=== PATIENT | female | born 1985 | race Caucasian/White ===

== ENCOUNTER 2017-10-04 08:10 | Outpatient (CLI) | payer BC ==
--- NOTE | 2017-10-04 13:35 | NM ---
NUCLEAR MEDICINE GASTRIC EMPTYING EXAM: 10/04/2017 HISTORY: Gastroesophageal reflux disease without esophagitis. Irritable bowel syndrome with diarrhea and weig ht loss. Assess gastric emptying. COMPARISON: None. TECHNIQUE: The patient ingested 2.1 millicuries of technetium 99m labeled sulfur colloid orally, in a scrambled egg. Anterior planar imaging was performed over four hours to calculate the gastric emptying time. FINDINGS: There is radiotracer activity within the stomach on post ingestion imaging. There is 90% emptying at 30 minutes, 19% emptying at 60 minutes, 40% emptying at two hours, 53% emptying at three hours, and 70% emptying at four hours. The T1 one-half is 193 minutes, greater than the normal of 90 minutes. IMPRESSION: Delayed gastric emptying is noted. T1/2 is 163min, while normal T one-half for gastric emptying is 9 0 minutes or less. POS: BEATRICE
== END 2017-10-04 08:11 | disposition home or self-care (01) ==
LOC: NM 08:10
PROVIDERS: ATTEND Internal Medicine Gastroenterology
DX: K21.9 Gastro-esophageal reflux disease without esophagitis (principal); K58.0 Irritable bowel syndrome with diarrhea; R63.4 Abnormal weight loss; D50.0 Iron deficiency anemia secondary to blood loss (chronic); K90.0 Celiac disease
CPT/HCPCS: 78264; A9541

== ENCOUNTER 2017-10-10 08:09 | Outpatient (CLI) | payer BC | END 2017-10-10 08:10 | disposition home or self-care (01) | LOC: BICULT 08:09 | PROVIDERS: ATTEND Urology | DX: N39.41 Urge incontinence (principal); N28.1 Cyst of kidney, acquired | CPT/HCPCS: 76770 ==

== ENCOUNTER 2018-01-09 07:04 | Outpatient (CLI) | payer BC ==
--- NOTE | 2018-01-09 11:05 | CT ---
ABDOMEN AND PELVIC CT SCAN WITH IV CONTRAST: HISTORY: A 32-year-old female with a history of weight loss, nausea, and bowel changes, inability to eat. FINDINGS: The lung bases are clear. Visualized liver, gallbladder, pancreas, and borderline size spleen are no wei. Adrenal glands are unremarkable. No renal calculus or acute GE obstruction. No CT evidence fo r acute appendicitis. In the left adnexal region there is a somewhat complex multiseptated cystic ma ss measuring 5.6 x 8 cm with at least some of the septations showing some thickening as well as enhan cement certainly raising concern for ovarian cystic neoplasm. Further evaluation with gynecological consultation in this regard is suggested. A 2 cm diameter small right ovarian follicle cyst. No abs cess or abnormal fluid collection. No adenopathy. IMPRESSION: Borderline size spleen. Somewhat complex multiseptated cystic mass in the left adnexa region includi ng some thickened enhancing septae raising concern for left ovarian cystic neoplasm. Gynecological e valuation in this regard is suggested. CODE T POS: BEATRICE
[2018-01-09] MEDS ORDERED: Iopamidol 370 76% 100 ML VIAL ONE (11:33)
== END 2018-01-09 07:05 | disposition home or self-care (01) ==
LOC: CT 07:04
PROVIDERS: ATTEND Internal Medicine Gastroenterology
DX: R63.4 Abnormal weight loss (principal); R10.84 Generalized abdominal pain; K31.84 Gastroparesis; R14.0 Abdominal distension (gaseous); D50.0 Iron deficiency anemia secondary to blood loss (chronic)
CPT/HCPCS: 36415; 74177; 84703

== ENCOUNTER 2018-10-09 10:50 | Outpatient (CLI) | payer OTHER | END 2018-10-09 10:51 | disposition home or self-care (01) | LOC: CTENTCT 10:50 | PROVIDERS: ATTEND Otolaryngology Plastic Surgery within the Head & Neck | DX: J32.9 Chronic sinusitis, unspecified (principal) | CPT/HCPCS: 70486 ==